=== PATIENT | male | born 1955 | race Caucasian/White ===

== ENCOUNTER 2016-10-22 15:50 | Outpatient (CLI) | payer OTHER | END 2016-10-22 15:51 | disposition home or self-care (01) | DX: M19.012 Primary osteoarthritis, left shoulder (principal); M75.52 Bursitis of left shoulder; M75.102 Unspecified rotator cuff tear or rupture of left shoulder, not specified as traumatic; M75.22 Bicipital tendinitis, left shoulder ==

== ENCOUNTER 2016-10-26 13:21 | Outpatient (CLI) | payer OTHER | END 2016-10-26 13:22 | disposition home or self-care (01) | DX: B18.2 Chronic viral hepatitis C (principal) ==

== ENCOUNTER 2017-01-07 08:37 | Outpatient (CLI) | payer OTHER | END 2017-01-07 08:38 | disposition home or self-care (01) | DX: B18.2 Chronic viral hepatitis C (principal); R16.1 Splenomegaly, not elsewhere classified; K80.20 Calculus of gallbladder without cholecystitis without obstruction ==

== ENCOUNTER 2017-12-23 09:38 | Outpatient (CLI) | payer OTHER ==
--- NOTE | 2017-12-23 13:20 | Ultrasound Report ---
COMPLETE ABDOMINAL ULTRASOUND: 12/23/2017 CLINICAL INDICATION: Hepatitis C. COMPARISON: 08/02/2017. TECHNIQUE: Real-time scanning was performed with enrollment representative static images obtained. FINDINGS: The liver measures 12.8 cm. Hepatic echogenicity is again heterogeneous. No focal lesion is appreciated. The common bile duct measures 5 mm. The gallbladder again demonstrates cholelithiasis. The pancreas is obscured by bowel gas. The kidneys are normal, with the right measuring 10.0 cm and the left measuring 10.3 cm. The spleen is enlarged, measuring 20 cm, compatible with portal hypertension. The visualized abdominal aorta is normal in caliber. The inferior vena cava is unremarkable. No free fluid is present. IMPRESSION: STABLE CIRRHOSIS AND SPLENOMEGALY. NO SIGNIFICANT INTERVAL CHANGE. TD: 12/23/2017 13:20
== END 2017-12-23 09:39 | disposition home or self-care (01) ==
LOC: DI 09:38
PROVIDERS: ATTEND Internal Medicine Gastroenterology
DX: B18.2 Chronic viral hepatitis C (principal); K74.60 Unspecified cirrhosis of liver; R16.1 Splenomegaly, not elsewhere classified
CPT/HCPCS: 76700

== ENCOUNTER 2018-10-23 03:39 | Outpatient (CLI) | payer BC ==
--- NOTE | 2018-10-23 07:43 | Ultrasound Report ---
Reason: HCC SCREENING FOR PATIENT WITH CIRRHOSIS Procedure Date: 10/23/2018 Accession Number: [id number] / [id number] Procedure: US - Abdomen Limited CPT Code: FULL RESULT: EXAM: ABDOMEN ULTRASOUND LIMITED, RUQ EXAM DATE: 10/23/2018 04:31 AM. CLINICAL HISTORY: HCC SCREENING FOR PATIENT WITH CIRRHOSIS. COMPARISON: ABDOMEN LIMITED 05/27/2016 5:44 PM. TECHNIQUE: Real-time scanning was performed with static images obtained. FINDINGS: Liver: Coarse heterogeneous parenchyma. Nodular capsule. No mass. No intrahepatic bile duct dilation. 15.7 cm. Main portal vein flow: Hepatopetal. Gallbladder: Gallstones are noted. No gallbladder wall thickening, pericholecystic fluid or sonographic Bell sign. Biliary System: CBD measures 5.8 mm. No intrahepatic or extrahepatic ductal dilatation. Other: None. IMPRESSION: 1. Cirrhotic liver. No mass or intrahepatic bile duct dilation. 2. Cholelithiasis. No sonographic findings concerning for acute cholecystitis. RADIA
== END 2018-10-23 03:40 | disposition home or self-care (01) ==
LOC: DI 03:39
PROVIDERS: ATTEND Internal Medicine Gastroenterology
DX: K74.60 Unspecified cirrhosis of liver (principal); K80.20 Calculus of gallbladder without cholecystitis without obstruction
CPT/HCPCS: 76705

== ENCOUNTER 2019-01-05 22:50 | Outpatient (CLI) | payer OTHER ==
--- NOTE | 2019-01-06 04:40 | Ultrasound Report ---
Reason: EDEMA RIGHT LEG Procedure Date: 01/05/2019 Accession Number: [id number] / [id number] Procedure: US - Duplex Ext Veins Right CPT Code: FULL RESULT: EXAM: RIGHT LOWER EXTREMITY VENOUS ULTRASOUND EXAM DATE: 01/05/2019 09:47 PM. CLINICAL HISTORY: Right leg edema. COMPARISON: None. TECHNIQUE: Real-time sonographic vascular imaging was performed by the court transcriber through the lower extremity utilizing both color-flow and Doppler spectral analysis. Multiple financial services representative static images were saved for review. FINDINGS: Common Femoral Vein (CFV): Normal. CFV-GSV Junction: Normal. Profunda Femoral Vein (PFV): Normal. Femoral Vein (FV) Prox: Normal. Femoral Vein (FV) Mid: Normal. Femoral Vein (FV) Dist: Normal. Popliteal Vein: Normal. Posterior Tibial Veins: Not seen due to edema. Peroneal Veins: Not seen due to edema. Contralateral Side CFV: Normal. Other: Subcutaneous edema in the calf. IMPRESSION: 1. No evidence for deep venous thrombosis. 2. Calf veins not seen due to edema. RADIA The call report notification system was initiated by Dr. Berry Morrow at 04:36 AM on 01/06/2019.
== END 2019-01-05 22:51 | disposition home or self-care (01) ==
LOC: DI 22:50
PROVIDERS: ATTEND Internal Medicine
DX: R60.0 Localized edema (principal)

== ENCOUNTER 2019-07-06 21:24 | Outpatient (CLI) | payer OTHER ==
--- NOTE | 2019-07-06 22:40 | Ultrasound Report ---
Reason: RT LEG EDEMA Procedure Date: 07/06/2019 Accession Number: [id number] / [id number] Procedure: US - Duplex Ext Veins Right CPT Code: FULL RESULT: EXAM: RIGHT LOWER EXTREMITY VENOUS ULTRASOUND EXAM DATE: 07/06/2019 10:24 PM. CLINICAL HISTORY: Right leg edema. COMPARISON: DUPLEX EXT VEINS RIGHT 01/05/2019 9:47 PM. TECHNIQUE: Real-time sonographic vascular imaging was performed by the field research assistant through the lower extremity utilizing both color-flow and Doppler spectral analysis. Multiple patient representative static images were saved for review. FINDINGS: Common Femoral Vein (CFV): Normal. CFV-GSV Junction: Normal. Profunda Femoral Vein (PFV): Normal. Femoral Vein (FV) Prox: Normal. Femoral Vein (FV) Mid: Normal. Femoral Vein (FV) Dist: Normal. Popliteal Vein: Normal. Posterior Tibial Veins: Normal. Peroneal Veins: Normal. Contralateral Side CFV: Normal. Other: Subcutaneous edema. Possible small, 3.5 x 1.5 x 2 cm popliteal cyst. IMPRESSION: 1. No evidence for right leg deep venous thrombosis. 2. Soft tissue edema. RADIA The call report notification system was initiated by Dr. Mert Barrera at 10:39 PM on 07/06/2019.
== END 2019-07-06 21:25 | disposition home or self-care (01) ==
LOC: DI 21:24
PROVIDERS: ATTEND Internal Medicine
DX: R60.0 Localized edema (principal)

== ENCOUNTER 2020-01-21 17:33 | Outpatient (CLI) | payer OTHER ==
[2020-01-21 18:05] LABS: BASOPHILS # (AUTO) 0.1 10^3/uL (0.0-0.1); BASOPHILS % (AUTO) 1.9 %; EOSINOPHILS # (AUTO) 0.6 10^3/uL (0.0-0.7); EOSINOPHILS % (AUTO) 8.8 %; HGB - HEMOGLOBIN 11.1 g/dL (14.0-18.0); LYMPHOCYTES # (AUTO) 1.2 10^3/uL (1.5-3.5); LYMPHOCYTES % (AUTO) 18.3 %; MEAN CORPUSCULAR HEMOGLOBIN 33.2 pg (27.0-31.0); MEAN CORPUSCULAR HGB CONC 33.5 g/dL (32.0-36.0); MEAN CORPUSCULAR VOLUME 99.1 fL (80.0-94.0); MEAN PLATELET VOLUME 8.9 fL (7.4-11.4); MONOCYTES # (AUTO) 0.4 10^3/uL (0.0-1.0); MONOCYTES % (AUTO) 6.1 %; NEUTROPHILS # (AUTO) 4.1 10^3/uL (1.5-6.6); NEUTROPHILS % (AUTO) 64.4 %; PLT - PLATELET COUNT 88 10^3/uL (130-450); RED BLOOD COUNT 3.34 10^6/uL (4.70-6.10); WHITE BLOOD COUNT 6.3 x10^3/uL (4.8-10.8)
[2020-01-21 18:26] LABS: ALBUMIN 2.5 g/dL (3.2-5.5); ALBUMIN/GLOBULIN RATIO 0.7 (1.0-2.2); BILIRUBIN,TOTAL 1.6 mg/dL (0.2-1.0); CALCIUM 7.8 mg/dL (8.5-10.3); CREATININE 1.5 mg/dL (0.6-1.2); TOTAL PROTEIN 6.1 g/dL (6.7-8.2)
[2020-01-21 18:44] LABS: THYROID STIMULATING HORMONE 5.6 uIU/mL (0.34-5.60)
[2020-01-21 18:45] LABS: FREE T3 2.76 pg/mL (2.5-3.9)
[2020-01-21 18:46] LABS: FREE T4 (FREE THYROXINE) 0.65 ng/dL (0.58-1.64)
== END 2020-01-21 17:34 | disposition home or self-care (01) ==
LOC: LAB 17:33
PROVIDERS: ATTEND Family Medicine
DX: I10 Essential (primary) hypertension (principal); R60.9 Edema, unspecified; R49.0 Dysphonia; M54.89 Other dorsalgia; G89.29 Other chronic pain
CPT/HCPCS: 36415; 80053; 84439; 84443; 84481; 85025

== ENCOUNTER 2020-03-23 19:53 | Outpatient (CLI) | payer OTHER ==
[2020-03-23 20:27] LABS: CREATININE 1.9 mg/dL (0.6-1.2)
== END 2020-03-23 19:54 | disposition home or self-care (01) ==
LOC: LAB 19:53
PROVIDERS: ATTEND Family Medicine
DX: R16.0 Hepatomegaly, not elsewhere classified (principal); R60.0 Localized edema
CPT/HCPCS: 36415; 80048

== ENCOUNTER 2020-07-16 14:17 | Outpatient (CLI) | payer OTHER ==
[2020-07-16 20:54] LABS: BASOPHILS # (AUTO) 0.1 10^3/uL (0.0-0.1); BASOPHILS % (AUTO) 1.1 %; EOSINOPHILS # (AUTO) 0.2 10^3/uL (0.0-0.7); EOSINOPHILS % (AUTO) 3.9 %; HGB - HEMOGLOBIN 12.3 g/dL (14.0-18.0); LYMPHOCYTES # (AUTO) 1.3 10^3/uL (1.5-3.5); LYMPHOCYTES % (AUTO) 28.6 %; MEAN CORPUSCULAR HEMOGLOBIN 33.2 pg (27.0-31.0); MEAN CORPUSCULAR HGB CONC 34.1 g/dL (32.0-36.0); MEAN CORPUSCULAR VOLUME 97.6 fL (80.0-94.0); MEAN PLATELET VOLUME 10.1 fL (7.4-11.4); MONOCYTES # (AUTO) 0.4 10^3/uL (0.0-1.0); MONOCYTES % (AUTO) 9.4 %; NEUTROPHILS # (AUTO) 2.5 10^3/uL (1.5-6.6); NEUTROPHILS % (AUTO) 56.8 %; PLT - PLATELET COUNT 64 10^3/uL (130-450); RED CELL DISTRIBUTION WIDTH 14.7 % (12.0-15.0); WHITE BLOOD COUNT 4.4 x10^3/uL (4.8-10.8)
[2020-07-16 22:16] LABS: ALBUMIN 3.3 g/dL (3.2-5.5); ALBUMIN/GLOBULIN RATIO 1.1 (1.0-2.2); ALKALINE PHOSPHATASE 59 IU/L (42-121); ALT ALANINE AMINOTRANSFERASE 12 IU/L (10-60); AST ASPARTATE AMINOTRANSFERASE 24 IU/L (10-42); BILIRUBIN,TOTAL 2.5 mg/dL (0.2-1.0); BUN - BLOOD UREA NITROGEN 30 mg/dL (6-20); CALCIUM 8.9 mg/dL (8.5-10.3); CARBON DIOXIDE - CO2 21 mmol/L (21-32); CHLORIDE 113 mmol/L (101-111); CHOL/HDL RATIO 2.3 (<5.0); CHOLESTEROL 143 mg/dL; CREATININE 1.8 mg/dL (0.6-1.2); GLUCOSE 83 mg/dL (70-100); HDL CHOLESTEROL 63 mg/dL; LDL CHOLESTEROL,CALCULATED 69 mg/dL; LDL/HDL RATIO 1.1 (<3.6); SODIUM 140 mmol/L (135-145); TOTAL PROTEIN 6.4 g/dL (6.7-8.2); VLDL CHOLESTEROL 11 mg/dL
== END 2020-07-16 14:18 | disposition home or self-care (01) ==
LOC: LAB.S 14:17
PROVIDERS: ATTEND Family Medicine
DX: M54.89 Other dorsalgia (principal); G89.29 Other chronic pain; Z79.899 Other long term (current) drug therapy; I12.9 Hypertensive chronic kidney disease with stage 1 through stage 4 chronic kidney disease, or unspecified chronic kidney disease; N18.30 Chronic kidney disease, stage 3 unspecified; B18.2 Chronic viral hepatitis C; R16.0 Hepatomegaly, not elsewhere classified
CPT/HCPCS: 36415; 80053; 80061; 82306; 83721; 85025; 87522

== ENCOUNTER 2021-01-16 09:37 | Outpatient (CLI) | payer OTHER ==
[2021-01-16 16:20] LABS: CALCIUM 9.6 mg/dL (8.5-10.3); CREATININE 2.5 mg/dL (0.6-1.2); MAGNESIUM 2.1 mg/dL (1.7-2.8); PHOSPHORUS 3.8 mg/dL (2.5-4.6); POTASSIUM 4.9 mmol/L (3.5-5.0)
== END 2021-01-16 09:38 | disposition home or self-care (01) ==
LOC: LAB.S 09:37
PROVIDERS: ATTEND Family Medicine
DX: I12.9 Hypertensive chronic kidney disease with stage 1 through stage 4 chronic kidney disease, or unspecified chronic kidney disease (principal); N18.30 Chronic kidney disease, stage 3 unspecified; R53.83 Other fatigue; R49.0 Dysphonia; R60.9 Edema, unspecified
CPT/HCPCS: 36415; 80048; 83735; 84100

== ENCOUNTER 2021-04-28 14:00 | Outpatient (CLI) | payer OTHER ==
[2021-04-28 20:13] LABS: BASOPHILS # (AUTO) 0.1 10^3/uL (0.0-0.1); EOSINOPHILS # (AUTO) 0.3 10^3/uL (0.0-0.7); EOSINOPHILS % (AUTO) 4.8 %; HCT - HEMATOCRIT 40.2 % (42.0-52.0); HGB - HEMOGLOBIN 13.4 g/dL (14.0-18.0); LYMPHOCYTES # (AUTO) 2.2 10^3/uL (1.5-3.5); LYMPHOCYTES % (AUTO) 35.3 %; MEAN CORPUSCULAR HEMOGLOBIN 33.6 pg (27.0-31.0); MEAN CORPUSCULAR HGB CONC 33.3 g/dL (32.0-36.0); MEAN CORPUSCULAR VOLUME 100.8 fL (80.0-94.0); MEAN PLATELET VOLUME 10.2 fL (7.4-11.4); MONOCYTES # (AUTO) 0.3 10^3/uL (0.0-1.0); MONOCYTES % (AUTO) 5.6 %; NEUTROPHILS # (AUTO) 3.2 10^3/uL (1.5-6.6); NEUTROPHILS % (AUTO) 53.1 %; PLT - PLATELET COUNT 59 10^3/uL (130-450); RED BLOOD COUNT 3.99 10^6/uL (4.70-6.10); WHITE BLOOD COUNT 6.1 x10^3/uL (4.8-10.8)
[2021-04-28 20:28] LABS: ALBUMIN/GLOBULIN RATIO 1.4 (1.0-2.2); BILIRUBIN,TOTAL 1.9 mg/dL (0.2-1.0); CALCIUM 9.8 mg/dL (8.5-10.3); POTASSIUM 4.6 mmol/L (3.5-5.0); TOTAL PROTEIN 6.8 g/dL (6.7-8.2)
[2021-04-28 20:56] LABS: ESTIMATED AVERAGE GLUCOSE 85 mg/dL (70-100); HEMOGLOBIN A1c% 4.6 % (4.27-6.07)
== END 2021-04-28 14:01 | disposition home or self-care (01) ==
LOC: LAB.S 14:00
PROVIDERS: ATTEND Family Medicine
DX: I12.9 Hypertensive chronic kidney disease with stage 1 through stage 4 chronic kidney disease, or unspecified chronic kidney disease (principal); N18.32 Chronic kidney disease, stage 3b; B18.2 Chronic viral hepatitis C; R94.5 Abnormal results of liver function studies; R73.9 Hyperglycemia, unspecified; M54.9 Dorsalgia, unspecified; G89.29 Other chronic pain
CPT/HCPCS: 36415; 80053; 83036; 85025

== ENCOUNTER 2021-07-07 18:47 | Outpatient (CLI) | payer OTHER ==
--- NOTE | 2021-07-08 10:32 | Ultrasound Report ---
PROCEDURE: Retroperitoneal INDICATIONS: CHRONIC KIDNEY DISEASE TECHNIQUE: Real-time scanning was performed of the retroperitoneal organs, with image documentation. COMPARISON: None. FINDINGS: Kidneys: Kidneys are slightly decreased in size. Kidneys are diffusely echogenic and not well seen s onographically. Right kidney measures 9.2 cm long; left kidney measures 9.2 cm long. Right renal co rtical thickness is 1.2 cm; left renal cortical thickness is 0.9 cm. No solid masses, hydronephrosis , or nephrolithiasis. Miscellaneous: Prevoid bladder volume measures 44 cc. No post void residual was obtained as the patie nt was unable to void. IMPRESSION: Suboptimal examination as above. No hydronephrosis identified. Bilateral echogenic kidneys suggesting chronic medical renal disease. Reviewed by: Primitivo Ceron MD on 07/08/2021 10:31 AM PDT Approved by: Primitivo Ceron MD on 07/08/2021 10:31 AM PDT Station ID: [id number]
== END 2021-07-07 18:48 | disposition home or self-care (01) ==
LOC: DI 18:47
PROVIDERS: ATTEND Family Medicine
DX: N17.9 Acute kidney failure, unspecified (principal); N18.32 Chronic kidney disease, stage 3b

== ENCOUNTER 2021-07-14 21:07 | Outpatient (CLI) | payer OTHER | END 2021-07-14 21:08 | disposition EMS.NT | LOC: EMS 21:07 | DX: R53.1 Weakness (principal); R11.10 Vomiting, unspecified; R50.9 Fever, unspecified ==

== ENCOUNTER 2021-07-29 14:11 | Outpatient (CLI) | payer OTHER | END 2021-07-29 14:12 | disposition home or self-care (01) | LOC: LAB.S 14:11 | PROVIDERS: ATTEND Family Medicine | DX: N18.32 Chronic kidney disease, stage 3b (principal); Z53.9 Procedure and treatment not carried out, unspecified reason | CPT/HCPCS: 36415; 80048 ==

== ENCOUNTER 2021-07-30 08:00 | Outpatient (CLI) | payer OTHER ==
[2021-07-30 18:34] LABS: CALCIUM 9.1 mg/dL (8.5-10.3)
== END 2021-07-30 23:59 | disposition home or self-care (01) ==
LOC: LAB.WCP 08:00
PROVIDERS: ATTEND Family Medicine
DX: N18.32 Chronic kidney disease, stage 3b (principal)
CPT/HCPCS: 36415; 80048

== ENCOUNTER 2021-09-28 08:13 | Outpatient (CLI) | payer OTHER ==
[2021-09-28 14:50] LABS: BASOPHILS % (AUTO) 0.9 %; EOSINOPHILS # (AUTO) 0.2 10^3/uL (0.0-0.7); EOSINOPHILS % (AUTO) 5.1 %; HCT - HEMATOCRIT 37.9 % (42.0-52.0); HGB - HEMOGLOBIN 12.9 g/dL (14.0-18.0); LYMPHOCYTES # (AUTO) 1.5 10^3/uL (1.5-3.5); LYMPHOCYTES % (AUTO) 41.2 %; MEAN CORPUSCULAR HEMOGLOBIN 33.3 pg (27.0-31.0); MEAN CORPUSCULAR VOLUME 97.9 fL (80.0-94.0); MEAN PLATELET VOLUME 10.3 fL (7.4-11.4); MONOCYTES # (AUTO) 0.2 10^3/uL (0.0-1.0); MONOCYTES % (AUTO) 6.3 %; NEUTROPHILS # (AUTO) 1.6 10^3/uL (1.5-6.6); NEUTROPHILS % (AUTO) 46.5 %; PLT - PLATELET COUNT 43 10^3/uL (130-450); RED BLOOD COUNT 3.87 10^6/uL (4.70-6.10); WHITE BLOOD COUNT 3.5 x10^3/uL (4.8-10.8)
[2021-09-28 15:01] LABS: ALBUMIN 3.6 g/dL (3.2-5.5); ALBUMIN/GLOBULIN RATIO 1.3 (1.0-2.2); ALKALINE PHOSPHATASE 46 IU/L (42-121); ALT ALANINE AMINOTRANSFERASE 12 IU/L (10-60); AST ASPARTATE AMINOTRANSFERASE 21 IU/L (10-42); BILIRUBIN,TOTAL 2.4 mg/dL (0.2-1.0); BUN - BLOOD UREA NITROGEN 22 mg/dL (6-20); CALCIUM 9.9 mg/dL (8.5-10.3); CARBON DIOXIDE - CO2 24 mmol/L (21-32); CHLORIDE 110 mmol/L (101-111); CHOL/HDL RATIO 2.4 (<5.0); CHOLESTEROL 145 mg/dL; CREATININE 1.9 mg/dL (0.6-1.2); GFR - MDRD 35 (>89); GLUCOSE 99 mg/dL (70-100); HDL CHOLESTEROL 60 mg/dL; LDL CHOLESTEROL,CALCULATED 70 mg/dL; LDL/HDL RATIO 1.2 (<3.6); MAGNESIUM 1.9 mg/dL (1.7-2.8); PHOSPHORUS 3.5 mg/dL (2.5-4.6); POTASSIUM 3.8 mmol/L (3.5-5.0); SODIUM 142 mmol/L (135-145); TOTAL PROTEIN 6.4 g/dL (6.7-8.2); TRIGLYCERIDES 76 mg/dL; URIC ACID 8.6 mg/dL (2.6-7.2); VLDL CHOLESTEROL 15 mg/dL
[2021-09-28 15:09] LABS: THYROID STIMULATING HORMONE 4.52 uIU/mL (0.34-5.60)
== END 2021-09-28 08:14 | disposition home or self-care (01) ==
LOC: LAB.S 08:13
PROVIDERS: ATTEND Family Medicine
DX: I12.9 Hypertensive chronic kidney disease with stage 1 through stage 4 chronic kidney disease, or unspecified chronic kidney disease (principal); N18.32 Chronic kidney disease, stage 3b
CPT/HCPCS: 36415; 80053; 80061; 83721; 83735; 84100; 84443; 84550; 85025

== ENCOUNTER 2022-02-20 21:13 | Emergency (ER) | payer BC, OTHER ==
--- NOTE | 2022-02-20 21:51 | ED Physician Documentation ---
PD HPI ABD PAIN - Stated complaint Stated Complaint: SOA, ABD PAIN - Chief complaint Chief Complaint: Abd Pain - History obtained from History obtained from: Patient (limited (lethargic, slow to answer)), Family (spouse) - History of Present Illness Timing - onset: How many days ago (4 days (cough), 2 days (right flank/RUQ pain)) Timing - details: Gradual onset Pain level now: 10 Quality: Pain Location: RUQ Radiation: Right flank Improved by: Other (no ameliorating factors) Worsened by: Palpation Associated symptoms: Nausea. No: Fever, Vomiting Similar symptoms before: Has not had sx before Recently seen: Not recently seen - Additional information Additional information: presents with cough x 4 days and mild dyspnea, increasing generalized weakness. Chief complaint, however, is RUQ pain that developed 1-2 days ago and steadily worsening. Has not had this pain before. His PMHx includes cirrhosis due to hepatitis C but indicates the hepatitis C was successfully treated. She also notes that he is jaundiced, which also is new for him, noted over past several days. Review of Systems Constitutional: reports: Fatigue. denies: Fever, Chills, Sweats Cardiac: reports: Reviewed and negative Respiratory: reports: Dyspnea (mild), Cough GI: reports: Abdominal Pain, Nausea. denies: Abdominal Swelling, Vomiting : reports: Reviewed and negative Skin: reports: Other (jaundice) Neurologic: reports: Generalized weakness, Altered mental status (slow to respond) PD PAST MEDICAL HISTORY - Past Medical History Cardiovascular: Hypertension Respiratory: None Endocrine/Autoimmune: None GI: Hiatal hernia, Hepatitis, Cirrhosis, Other : None HEENT: Other Psych: None Musculoskeletal: Chronic back pain, Other Derm: None - Past Surgical History Past Surgical History: No /[employer]: Other HEENT: Other - Present Medications Home Medications: Ambulatory Orders Medication Instructions Recorded Confirmed Methadone [Methadone Hcl] 20 mg PO TID 06/22/13 09/14/15 atenoloL [Tenormin] 50 mg PO BID 06/22/13 09/14/15 Spironolactone 50 mg PO BID 09/14/15 09/14/15 hydrALAZINE [Apresoline] 25 mg PO TID 09/14/15 09/14/15 Fluconazole 200 mg PO DAILY 04/19/16 04/19/16 Folic Acid 400 mcg PO DAILY 04/19/16 04/19/16 Furosemide [Lasix] 40 mg PO DAILY 04/19/16 04/19/16 Hepatitis C 400 mg PO DAILY 04/19/16 Multivit-Minerals/Folic Acid 1 tab PO DAILY 04/19/16 04/19/16 [Centrum Multigummies] oxyCODONE [Roxicodone] 10 mg PO Q4-6H 04/19/16 04/19/16 rifAXIMin [Xifaxan] 550 mg PO BID 04/19/16 04/19/16 - Allergies Allergies/Adverse Reactions: Allergies Allergy/AdvReac Type Severity Reaction Status Date / Time clonidine HCl * AdvReac Severe Hallucinati Verified 02/20/22 21:35 [From CataprHypios] ons prochlorperazine edisylate * AdvReac Intermediate Emesis Verified 02/20/22 21:35 [From Compazine] prochlorperazine maleate * AdvReac Intermediate Emesis Verified 02/20/22 21:35 [From Compazine] - Social History Does the pt smoke?: No Smoking Status: Never smoker Does the pt drink ETOH?: No Does the pt have substance abuse?: No - Immunizations Immunizations are current?: Yes - POLST Patient has POLST: No PD ED PE NORMAL - Vitals Vital signs reviewed: Yes - General General: Well developed/nourished, Other (awake, alert, follows commands, answers some of my questions with gestures (pointing to RUQ, nods/shakes head), but mostly defers to (who is familiar with his PMhx and current symptoms)) - HEENT HEENT: Other (tachy/pasty mucous membranes; eyes are icteric) - Neck Neck: Supple, no meningeal sign - Cardiac Cardiac: RRR, No murmur - Respiratory Respiratory: No respiratory distress, Other (diminished right base breath sounds without rhonchi) - Abdomen Abdomen: Soft, Non distended, Other (TTP RUQ>epigastric, no rebound or guarding) - Derm Derm: Other (jaundice) PD ED PE EXPANDED - Extremities Extremities: Pedal edema bilateral Results - Vitals Vitals: Vital Signs - 24 hr 02/20/22 02/20/22 02/20/22 21:15 21:28 21:58 Temperature 36.2 C L Heart Rate 88 89 90 Respiratory 24 20 19 Rate Blood Pressure 176/85 H 179/83 H O2 Saturation 100 99 99 02/20/22 02/20/22 02/20/22 22:28 23:00 23:30 Temperature Heart Rate 83 78 Respiratory 13 17 18 Rate Blood Pressure 149/63 H 142/62 H O2 Saturation 99 99 02/21/22 02/21/22 02/21/22 00:00 00:30 02:31 Temperature Heart Rate 77 70 Respiratory 18 19 15 Rate Blood Pressure 145/65 H 152/93 H O2 Saturation 99 98 99 02/21/22 02/21/22 02/21/22 04:02 06:49 07:30 Temperature Heart Rate 68 73 79 Respiratory 18 11 L 18 Rate Blood Pressure 141/61 H 141/60 H 145/58 H O2 Saturation 99 98 02/21/22 02/21/22 02/21/22 08:11 09:36 10:01 Temperature 36.1 C L Heart Rate 66 69 70 Respiratory 18 12 14 Rate Blood Pressure 135/59 H 126/66 126/66 O2 Saturation 97 96 02/21/22 11:13 Temperature Heart Rate 65 Respiratory 16 Rate Blood Pressure 126/88 H O2 Saturation 95 Oxygen O2 Source [] Room air O2 Source Room air - Labs Labs: Laboratory Tests 02/20/22 02/20/22 02/20/22 22:09 22:25 23:57 WBC RBC Hgb Hct MCV MCH MCHC RDW Plt Count MPV Neut # (Auto) Lymph # (Auto) Green # (Auto) Eos # (Auto) Baso # (Auto) Absolute Nucleated RBC Total Counted Band Neuts % (Manual) Abnorm Lymph % (Manual) Nucleated RBC % Neutrophils # (Manual) Lymphocytes # (Manual) Monocytes # (Manual) Eosinophils # (Manual) Basophils # (Manual) Differential Comment Platelet Estimate RBC Morph Micro Appear PT 22.5 H INR 2.0 H APTT 32.4 Sodium Potassium Chloride Carbon Dioxide Anion Gap BUN Creatinine Estimated GFR (MDRD) Glucose Lactic Acid Calcium Total Bilirubin AST ALT Alkaline Phosphatase Ammonia Total Protein Albumin Globulin Albumin/Globulin Ratio Lipase Urine Color DARK YELLOW Urine Clarity CLEAR Urine pH 5.5 Ur Specific [place] 1.015 Urine Protein NEGATIVE Urine Glucose (UA) NEGATIVE Urine Ketones NEGATIVE Urine Occult Blood TRACE-INTA Urine Nitrite NEGATIVE Urine Bilirubin SMALL H Urine Urobilinogen >=8.0 H Ur Leukocyte Esterase NEGATIVE Ur Microscopic Review NOT INDICATED Urine Culture Comments NOT INDICATED Nasal Adenovirus (PCR) NOT DETECTED Nasal B. parapertussis DNA (PCR) NOT DETECTED Nasal Coronavir 229E PCR NOT DETECTED Nasal Coronavir HKU1 PCR NOT DETECTED Nasal Coronavir NL63 PCR NOT DETECTED Nasal Coronavir OC43 PCR NOT DETECTED Nasal Enterovir/Rhinovir PCR NOT DETECTED Nasal Influenza B PCR NOT DETECTED Nasal Influenza A PCR NOT DETECTED Nasal Parainfluen 1 PCR NOT DETECTED Nasal Parainfluen 2 PCR NOT DETECTED Nasal Parainfluen 3 PCR NOT DETECTED Nasal Parainfluen 4 PCR DETECTED A Nasal RSV (PCR) NOT DETECTED Nasal B.pertussis DNA PCR NOT DETECTED Nasal C.pneumoniae (PCR) NOT DETECTED Alen Human Metapneumo PCR NOT DETECTED Nasal M.pneumoniae (PCR) NOT DETECTED Nasal SARS-CoV-2 (PCR) NOT DETECTED Urine Opiates Screen Ur Oxycodone Screen Urine Methadone Screen Ur Propoxyphene Screen Ur Barbiturates Screen Ur Tricyclics Screen Ur Phencyclidine Scrn Ur Amphetamine Screen U Methamphetamines Scrn U Benzodiazepines Scrn Urine Cocaine Screen U Cannabinoids Screen 02/20/22 02/21/22 02/21/22 23:57 00:13 00:13 WBC RBC Hgb Hct MCV MCH MCHC RDW Plt Count MPV Neut # (Auto) Lymph # (Auto) Green # (Auto) Eos # (Auto) Baso # (Auto) Absolute Nucleated RBC Total Counted Band Neuts % (Manual) Abnorm Lymph % (Manual) Nucleated RBC % Neutrophils # (Manual) Lymphocytes # (Manual) Monocytes # (Manual) Eosinophils # (Manual) Basophils # (Manual) Differential Comment Platelet Estimate RBC Morph Micro Appear PT INR APTT Sodium 137 Potassium 4.3 Chloride 107 Carbon Dioxide 18 L Anion Gap 12.0 BUN 63 H Creatinine 2.8 H Estimated GFR (MDRD) 23 L Glucose 93 Lactic Acid Calcium 8.7 Total Bilirubin 8.6 H AST 21 ALT 15 Alkaline Phosphatase 74 Ammonia 37.5 H Total Protein 5.6 L Albumin 2.5 L Globulin 3.1 Albumin/Globulin Ratio 0.8 L Lipase 24 Urine Color Urine Clarity Urine pH Ur Specific [place] Urine Protein Urine Glucose (UA) Urine Ketones Urine Occult Blood Urine Nitrite Urine Bilirubin Urine Urobilinogen Ur Leukocyte Esterase Ur Microscopic Review Urine Culture Comments Nasal Adenovirus (PCR) Nasal B. parapertussis DNA (PCR) Nasal Coronavir 229E PCR Nasal Coronavir HKU1 PCR Nasal Coronavir NL63 PCR Nasal Coronavir OC43 PCR Nasal Enterovir/Rhinovir PCR Nasal Influenza B PCR Nasal Influenza A PCR Nasal Parainfluen 1 PCR Nasal Parainfluen 2 PCR Nasal Parainfluen 3 PCR Nasal Parainfluen 4 PCR Nasal RSV (PCR) Nasal B.pertussis DNA PCR Nasal C.pneumoniae (PCR) Alen Human Metapneumo PCR Nasal M.pneumoniae (PCR) Nasal SARS-CoV-2 (PCR) Urine Opiates Screen NEGATIVE Ur Oxycodone Screen POSITIVE H Urine Methadone Screen POSITIVE H Ur Propoxyphene Screen NEGATIVE Ur Barbiturates Screen NEGATIVE Ur Tricyclics Screen NEGATIVE Ur Phencyclidine Scrn NEGATIVE Ur Amphetamine Screen NEGATIVE U Methamphetamines Scrn NEGATIVE U Benzodiazepines Scrn NEGATIVE Urine Cocaine Screen NEGATIVE U Cannabinoids Screen NEGATIVE 02/21/22 02/21/22 02/21/22 01:34 01:34 06:50 WBC 17.8 H RBC 3.00 L Hgb 10.6 L Hct 31.5 L MCV 105.0 H MCH 35.3 H MCHC 33.7 RDW 20.2 H Plt Count 77 L MPV 9.2 Neut # (Auto) Not Reportable Lymph # (Auto) Not Reportable Green # (Auto) Not Reportable Eos # (Auto) Not Reportable Baso # (Auto) Not Reportable Absolute Nucleated RBC Not Reportable Total Counted 100 Band Neuts % (Manual) 5 Abnorm Lymph % (Manual) 0 Nucleated RBC % Not Reportable Neutrophils # (Manual) 16.2 H Lymphocytes # (Manual) 0.9 L Monocytes # (Manual) 0.5 Eosinophils # (Manual) 0.2 Basophils # (Manual) 0.0 Differential Comment MANUAL DIFFERENTIAL Platelet Estimate DECREASED (<130,000) RBC Morph Micro Appear 1+ OVALOCYTES PT INR APTT Sodium Potassium Chloride Carbon Dioxide Anion Gap BUN Creatinine Estimated GFR (MDRD) Glucose Lactic Acid 3.1 H* 2.1 Calcium Total Bilirubin AST ALT Alkaline Phosphatase Ammonia Total Protein Albumin Globulin Albumin/Globulin Ratio Lipase Urine Color Urine Clarity Urine pH Ur Specific [place] Urine Protein Urine Glucose (UA) Urine Ketones Urine Occult Blood Urine Nitrite Urine Bilirubin Urine Urobilinogen Ur Leukocyte Esterase Ur Microscopic Review Urine Culture Comments Nasal Adenovirus (PCR) Nasal B. parapertussis DNA (PCR) Nasal Coronavir 229E PCR Nasal Coronavir HKU1 PCR Nasal Coronavir NL63 PCR Nasal Coronavir OC43 PCR Nasal Enterovir/Rhinovir PCR Nasal Influenza B PCR Nasal Influenza A PCR Nasal Parainfluen 1 PCR Nasal Parainfluen 2 PCR Nasal Parainfluen 3 PCR Nasal Parainfluen 4 PCR Nasal RSV (PCR) Nasal B.pertussis DNA PCR Nasal C.pneumoniae (PCR) Alen Human Metapneumo PCR Nasal M.pneumoniae (PCR) Nasal SARS-CoV-2 (PCR) Urine Opiates Screen Ur Oxycodone Screen Urine Methadone Screen Ur Propoxyphene Screen Ur Barbiturates Screen Ur Tricyclics Screen Ur Phencyclidine Scrn Ur Amphetamine Screen U Methamphetamines Scrn U Benzodiazepines Scrn Urine Cocaine Screen U Cannabinoids Screen - Rads (name of study) CT A/P without contrast Radiology: Prelim report reviewed, See rad report RUQ US Radiology: Other (results pending at end of my shift) PD MEDICAL DECISION MAKING - ED course Complexity details: reviewed old records, reviewed results, re-evaluated patient, considered differential, d/w patient, d/w family ED course: chief complaint is RUQ abdominal pain. also notes new onset of jaundice, coughing x 4 days, slow to respond, and generalized weakness. He is afebrile but significant leukocytosis (17k WBC). Bilirubin 8.6 (all previous bilirubin results in [facility] have never been higher than 2.9). His AST/ALT are normal. His ammonia level is only 37.6. Lactate 3.1, INR 2.0. BUN 63 and creatinine 2.8 (higher than baseline). Respiratory PCR swab is only positive for parainfluenza 4. CT A/P shows abnormal gallbladder with wall thickening and layering stones. moderate ascites seen largely accumulated adjacent to liver and potentially partially loculated. Small right sided pleural effusion. I discussed this case with the hospitalist at [facility] , Dr. Malave. She feels patient would be appropriate for transfer to their facility. She asks for repeat lactate and that I discuss the case with the surgeon section supervisor at [facility] before transferring patient. I d/w Dr. Fiore, surgery section supervisor at [facility]; she requests US for further information regarding the gallbladder findings and she requests the results before transfer. This discussion was approximately 7 AM and US not available until 9 AM at [facility], but the transfer center indicates that a bed will likely not be available until after 9 AM anyway. Care of patient turned over to Dr. Yee at end of my shift pending the US results and final disposition. The repeat lactate did return during my shift and this result was normal (2.1) Patient given zosyn during ED stay given the RUQ pain/tenderness and abnormal GB findings on CT as well as what appears to be new onset-jaundice and bilirubin that is markedly higher than previous results. Departure - Departure Clinical Impression: Jaundice Cirrhosis of liver Qualifiers: Hepatic cirrhosis type: unspecified hepatic cirrhosis Ascites presence: with ascites Qualified Code(s): K74.60 - Unspecified cirrhosis of liver; R18.8 - Other ascites Abdominal pain Qualifiers: Abdominal location: right upper quadrant Qualified Code(s): R10.11 - Right upper quadrant pain Condition: Stable
[2022-02-20 22:36] LABS: PT - PROTHROMBIN TIME 22.5 secs (9.9-12.6)
[2022-02-20 22:43] LABS: PARTIAL THROMBOPLASTIN TIME 32.4 secs (24.9-33.3)
[2022-02-20] MEDS ORDERED: SODIUM CHLORIDE 0.9% 500 ML IV STA (22:57)
[2022-02-20 23:31] LABS: B. PARAPERTUSSIS- RESP PCR PAN NOT DETECTED; B. PERTUSSIS- RESP PCR PANEL NOT DETECTED; C. PNEUMONIAE- RESP PCR PANEL NOT DETECTED; CORONAVIRUS 229E-RESP PCR NOT DETECTED; CORONAVIRUS HKU1-RESP PCR NOT DETECTED; CORONAVIRUS NL63-RESP PCR NOT DETECTED; CORONAVIRUS OC43-RESP PCR NOT DETECTED; HUMAN METAPNEUMOVIRUS NOT DETECTED; INFLUENZA A- RESP PCR PANEL NOT DETECTED; INFLUENZA B - RESP PCR PANEL NOT DETECTED; M. PNEUMONIAE- RESP PCR PANEL NOT DETECTED; PARAINFLUENZA VIRUS 1 NOT DETECTED; PARAINFLUENZA VIRUS 2 NOT DETECTED; PARAINFLUENZA VIRUS 3 NOT DETECTED; PARAINFLUENZA VIRUS 4 DETECTED; RHINOVIRUS/ENTEROVIRUS NOT DETECTED; RSV- RESP PCR PANEL NOT DETECTED; SARS-CoV-2 -RESP PCR PANEL NOT DETECTED
[2022-02-21 00:04] LABS: GLUCOSE, URINE (UA) NEGATIVE (NEGATIVE); KETONES,URINE (UA) NEGATIVE (NEGATIVE); LEUKOCYTE ESTERASE, URINE NEGATIVE (NEGATIVE); NITRITE,URINE NEGATIVE (NEGATIVE); OCCULT BLOOD,URINE TRACE-INTA (NEGATIVE); PH,URINE 5.5 PH (5.0-7.5); PROTEIN,URINE NEGATIVE (NEGATIVE); UROBILINOGEN,URINE >=8.0 E.U./dL (NORMAL)
[2022-02-21 00:06] LABS: CLARITY,URINE CLEAR (CLEAR)
[2022-02-21 00:10] LABS: BILIRUBIN,URINE SMALL (NEGATIVE); ICTOTEST,URINE POSITIVE
[2022-02-21 00:33] LABS: ALBUMIN 2.5 g/dL (3.2-5.5); ALBUMIN/GLOBULIN RATIO 0.8 (1.0-2.2); BILIRUBIN,TOTAL 8.6 mg/dL (0.2-1.0); CALCIUM 8.7 mg/dL (8.5-10.3); CREATININE 2.8 mg/dL (0.6-1.2); POTASSIUM 4.3 mmol/L (3.5-5.0); TOTAL PROTEIN 5.6 g/dL (6.7-8.2)
[2022-02-21] MEDS ORDERED: oxyCODONE 5 MG TABLET PO STA ×2 (00:33→07:37)
[2022-02-21] MEDS ORDERED: METHADONE 5 MG TABLET PO STA ×2 (00:33→08:41)
--- NOTE | 2022-02-21 01:19 | CT Report ---
PROCEDURE: Abdomen/Pelvis WO INDICATIONS: RUQ/RLQ abdominal pain TECHNIQUE: Noncontrast 5 mm thick sections acquired from the diaphragms to the symphysis. 5 mm coronal and sagi ttal reformats were then performed. For radiation dose reduction, the following was used: automated exposure control, adjustment of mA and/or kV according to patient size. COMPARISON: 05/22/2014 FINDINGS: Image quality: Excellent. ABDOMEN: Lung bases: There is a small right-sided pleural effusion, with overlying apparent atelectasis. Heart size is normal. Gynecomastia is incidentally noted. Solid organs: There is a shrunken, cirrhotic appearing liver with a nodular contour. No focal liver a bnormality is seen on this noncontrast study. Mild recanalization of the umbilical vein can be seen. The spleen is enlarged, measuring 15 cm AP. Calcified granulomas can be seen within the spleen. Gallbladder is abnormal, with a thickened wall and layering stones. The gallbladder itself is abnorma lly prominent. Pancreas is normal in contours. No adrenal nodules. Kidneys are normal in size, without hydronephro sis or nephrolithiasis. Peritoneum and bowel: In this patient with this given history, scrutiny is given to the appendix. Th e appendix is normal and largely filled with gas, as seen on series 3 images 40 and 41. No specific r ight lower quadrant inflammatory changes are seen. Unenhanced bowel loops demonstrate normal wall thickness and caliber. No free air. Moderate ascites is seen, which is largely seen adjacent to the liver. Nodes and vessels: Upper abdominal varices are seen. There is a likely splenorenal shunt, with an ab normally enlarged left renal vein. No retroperitoneal or mesenteric adenopathy by size criteria. Aorta and inferior vena cava are dilshad l in caliber. Miscellaneous: A mild fat-containing periumbilical hernia is seen. Periumbilical varices are seen. Mi ld generalized body wall edema is seen. PELVIS: Genitourinary: Bladder wall thickness is normal. Miscellaneous: No inguinal adenopathy. Mild bilateral fat-containing inguinal hernias are seen. Bones: No suspicious bony lesions. No acute vertebral body compression fractures. Mild chronic tho racolumbar anterior superior ribs are seen. Mild dextroconvex scoliotic curvature is seen. Focal L5-S 1 degenerative change is seen. Milder degenerative changes are seen elsewhere. IMPRESSION: There is a small right-sided pleural effusion, with overlying presumed atelectasis. The gallbladder is abnormal, with wall thickening and layering stones. The gallbladder wall thickenin g is nonspecific in this patient with ascites. Normal appendix. There is moderate ascites seen, which is largely accumulated adjacent to liver and is potentially par tially loculated. Cirrhotic appearing liver, with splenomegaly. Mild recanalization of the umbilical vein is seen. Jeny umbilical varices are seen. Upper abdominal varices are also seen, with a presumed splenorenal shunt. There is mild generalized body wall edema. Incidental note is made of: Gynecomastia Prior granulomatous exposure. Mild dextroconvex scoliotic curvature Focal L5-S1 degenerative change Mild fat-containing bilateral inguinal hernias Reviewed by: Cuba Jama MD on 02/21/2022 12:22 AM KIM Approved by: Cuba Jama MD on 02/21/2022 12:22 AM KIM Station ID: [id number]
[2022-02-21 01:40] LABS: BASOPHILS % (AUTO) 0.4 %; EOSINOPHILS % (AUTO) 0.8 %; HCT - HEMATOCRIT 31.5 % (42.0-52.0); HGB - HEMOGLOBIN 10.6 g/dL (14.0-18.0); LYMPHOCYTES % (AUTO) 8.5 %; MEAN CORPUSCULAR HEMOGLOBIN 35.3 pg (27.0-31.0); MEAN CORPUSCULAR HGB CONC 33.7 g/dL (32.0-36.0); MEAN PLATELET VOLUME 9.2 fL (7.4-11.4); PLT - PLATELET COUNT 77 10^3/uL (130-450); RED CELL DISTRIBUTION WIDTH 20.2 % (12.0-15.0); WHITE BLOOD COUNT 17.8 x10^3/uL (4.8-10.8)
[2022-02-21 01:45] LABS: ABNORMAL LYMPHS % (MANUAL) 0 %
[2022-02-21 02:28] LABS: BAND NEUTROPHILS % (MANUAL) 5 %; EOSINOPHILS # (MANUAL) 0.2 10^3/uL (0-0.7); LYMPHOCYTES # (MANUAL) 0.9 10^3/uL (1.5-3.5); LYMPHOCYTES % (MANUAL) 5 %; MONOCYTES # (MANUAL) 0.5 10^3/uL (0.0-1.0); NEUTROPHILS # (MANUAL) 16.2 10^3/uL (1.5-6.6)
[2022-02-21 02:29] LABS: DIFFERENTIAL COMMENT MANUAL DIFFERENTIAL; PLATELET ESTIMATE, MANUAL DECREASED (<130,000) (NORMAL)
[2022-02-21] MEDS ORDERED: PIPERACILLIN/TAZOBACTAM 3.375 GM in SODIUM CHLORIDE 0.9% MINIBAG 100 ML IV STA ×2 (05:11→17:30)
[2022-02-21 07:03] LABS: MUDS CUTOFF CONCENTRATIONS CUTOFF CONC BELOW:
[2022-02-21 07:07] LABS: AMPHETAMINE SCREEN,URINE NEGATIVE (NEGATIVE); BARBITURATE SCREEN,UR NEGATIVE (NEGATIVE); BENZODIAZEPINES SCREEN, URINE NEGATIVE (NEGATIVE); COCAINE SCREEN URINE NEGATIVE (NEGATIVE); METHADONE SCREEN, URINE POSITIVE (NEGATIVE); METHAMPHETAMINES SCREEN, URINE NEGATIVE (NEGATIVE); OPIATE SCREEN, URINE NEGATIVE (NEGATIVE); OXYCODONE SCREEN, URINE POSITIVE (NEGATIVE); PROPOXYPHENE SCREEN, URINE NEGATIVE (NEGATIVE); THC CANNABINOID SCREEN, URINE NEGATIVE (NEGATIVE); TRICYCLIC ANTIDEPRESSANT,URINE NEGATIVE (NEGATIVE)
[2022-02-21] MEDS ORDERED: ONDANSETRON 4 MG/2 ML VIAL IVP STA (08:42)
--- NOTE | 2022-02-21 11:32 | Ultrasound Report ---
PROCEDURE: Abdomen Limited INDICATIONS: RUQ pain, abnormal GB on CT TECHNIQUE: Real-time focused scanning was performed of the abdomen, with image documentation. COMPARISON: CT abdomen pelvis 02/20/2022 FINDINGS: Liver: Heterogenous echotexture consistent with cirrhosis. There is reversal of normal flow within t he main portal vein without occlusion. Gallbladder: Biliary sludge and probable small calculi noted without focal calculus present. Gallbla dder wall thickening measures 4.6 mm it. No pericholecystic fluid or sonographic Bell's sign. Common Bile Duct: 11.6 mm. Pancreas: Unremarkable as visualized. Right Kidney: Appropriate in size and echotexture. No evidence of hydronephrosis. No shadowing calc brandi. No solid or cystic mass lesion. Partially imaged IMPRESSION: 1. Cirrhotic appearing liver with reversal flow in the main portal vein, but no portal vein thrombosi s. 2. Nonspecific gallbladder wall thickening without evidence of acute cholecystitis 3. Dilated common bile duct, 1.2 cm, probably reflects distal CBD stone. Consider follow-up MRCP Reviewed by: Curry Nelson MD on 02/21/2022 10:31 AM KIM Approved by: Curry Nelson MD on 02/21/2022 10:31 AM KIM Station ID: [id number]
[2022-02-21] MEDS ORDERED: SODIUM CHLORIDE 0.9% 1,000 ML IV STA (14:30)
--- NOTE | 2022-02-21 14:35 | ED Physician Documentation ---
ED Addendum - Addendum Addendum: 02/21/22 17:18 Logan Rivers is a 67-year-old male with history of hep C and cirrhosis who has completed his treatment and has been on spironolactone and Lasix on an as-needed basis over the past 6 years. He presents to the emergency department today with increased confusion and decreased responsiveness. He is found to be dehydrated on interrogation the inferior vena cava is administered intravenous fluids. He has had an issue with this previously of dehydration related to his use of diuretic and he has had 1 episode of critical dehydration resulting in what appeared to be a near paralysis. He was transferred at that time and following treatment with that he has not required further treatment. He has been using his diuretics on an as-needed basis and has been able to manage his cirrhotic swelling. Today he has presented to the emergency department and we are able to provide some fluids.He is presenting today with new onset right upper quadrant pain and he is found to have a diseased gallbladder on imaging. RUQ ultrasound: impression: 1. Cirrhotic appearing liver with reversal of flow in the main portal vein, but not portal venous thrombosis. Nonspecific gallbladder wall thickening without evidence of acute cholecystitis. Dilated common bile duct 1.2 cm, probably for reflux distal common bile duct stone. Consider follow-up CP 02/21/22 17:19 02/21/22 17:26 02/21/22 17:28 At shift change we are still awaiting placement to [facility] for evaluation of cholecystectomy and MRCP. Care is turned over to Dr. Roger at shift change. 02/21/22 17:29
[2022-02-21 19:42] LABS: ALBUMIN 2.3 g/dL (3.2-5.5); ALBUMIN/GLOBULIN RATIO 0.7 (1.0-2.2); BILIRUBIN,TOTAL 7.5 mg/dL (0.2-1.0); CALCIUM 8.6 mg/dL (8.5-10.3); CREATININE 2.9 mg/dL (0.6-1.2); POTASSIUM 4.7 mmol/L (3.5-5.0); TOTAL PROTEIN 5.6 g/dL (6.7-8.2)
[2022-02-21 19:44] LABS: BASOPHILS # (AUTO) 0.1 10^3/uL (0.0-0.1); BASOPHILS % (AUTO) 0.6 %; EOSINOPHILS # (AUTO) 0.2 10^3/uL (0.0-0.7); EOSINOPHILS % (AUTO) 1.3 %; HCT - HEMATOCRIT 34.4 % (42.0-52.0); HGB - HEMOGLOBIN 10.6 g/dL (14.0-18.0); LYMPHOCYTES # (AUTO) 2.4 10^3/uL (1.5-3.5); LYMPHOCYTES % (AUTO) 17.5 %; MEAN CORPUSCULAR HEMOGLOBIN 35.6 pg (27.0-31.0); MEAN CORPUSCULAR HGB CONC 30.8 g/dL (32.0-36.0); MEAN CORPUSCULAR VOLUME 115.4 fL (80.0-94.0); MEAN PLATELET VOLUME 9.3 fL (7.4-11.4); MONOCYTES # (AUTO) 1.1 10^3/uL (0.0-1.0); MONOCYTES % (AUTO) 7.8 %; NEUTROPHILS # (AUTO) 9.9 10^3/uL (1.5-6.6); NEUTROPHILS % (AUTO) 71.1 %; NRBC ABSOLUTE COUNT (AUTO) 0.04 x10^3/uL; NUCLEATED RED BLOOD CELLS AUTO 0.3 /100WBC; PLT - PLATELET COUNT 94 10^3/uL (130-450); RED BLOOD COUNT 2.98 10^6/uL (4.70-6.10); RED CELL DISTRIBUTION WIDTH 20.5 % (12.0-15.0); WHITE BLOOD COUNT 13.9 x10^3/uL (4.8-10.8)
[2022-02-21 19:52] LABS: SLIDE REVIEW? Indicated
[2022-02-21] MEDS: oxyCODONE 5 MG TABLET PO PRN (20:04)
[2022-02-21] MEDS: METHADONE 5 MG TABLET PO SCH ×2 (20:05→20:10)
[2022-02-21 20:12] LABS: PLATELET ESTIMATE, MANUAL DECREASED (<130,000) (NORMAL); PLATELET MORPHOLOGY NORMAL APPEARANCE (NORMAL)
[2022-02-21] MEDS: PIPERACILLIN/TAZOBACTAM 3.375 GM in SODIUM CHLORIDE 0.9% MINIBAG 100 ML IV SCH (23:23)
[2022-02-22] MEDS: oxyCODONE 5 MG TABLET PO PRN (02:44)
[2022-02-22] MEDS: PIPERACILLIN/TAZOBACTAM 3.375 GM in SODIUM CHLORIDE 0.9% MINIBAG 100 ML IV SCH (05:27)
[2022-02-22 07:08] VITALS: BP 116/44
== END 2022-02-22 07:14 | disposition short-term general hospital (02) ==
LOC: ED 21:13
DX: K74.60 Unspecified cirrhosis of liver (principal); R18.8 Other ascites; I10 Essential (primary) hypertension; B34.8 Other viral infections of unspecified site
CPT/HCPCS: 36415; 74176; 76705; 80053; 80306; 81003; 82140; 83605; 83690; 85025; 85610; 85730; 87633; 93005; 96361; 96365; 96366; 96375; 99284; 99285; A9270; 81001; 87086

== ENCOUNTER 2022-02-22 07:15 | Outpatient (CLI) | payer BC | END 2022-02-22 07:16 | disposition short-term general hospital (02) | LOC: EMS 07:15 | PROVIDERS: ATTEND Emergency Medicine | DX: K80.20 Calculus of gallbladder without cholecystitis without obstruction (principal); K72.90 Hepatic failure, unspecified without coma; K74.60 Unspecified cirrhosis of liver; R18.8 Other ascites | CPT/HCPCS: A0425; A0428 ==